=== PATIENT | female | born 1960 | race Caucasian/White ===

== ENCOUNTER 2020-12-10 23:50 | Observation (INO) | payer OTHER ==
[2020-12-11 00:18] LABS: #Lymphocytes 1.5 thou/uL (1.20-3.40); #Monocytes 1.1 thou/uL (0.11-0.59); #Neutrophils 7.3 thou/uL (1.40-6.50); %Basophils 0.1 % (0.0-1.0); %Eosinophils 0.2 % (0.0-10.0); %Neutrophils 73.6 % (42.0-75.0); Hemoglobin 11.6 g/dL (12.0-16.0); Mean Corpuscular HGB CONC 32.7 g/dL (32.0-36.0); Mean Corpuscular Hemoglobin 28.3 pg (27.0-31.0); Mean Corpuscular Volume 86.6 fL (78.0-98.0); Mean Platelet Volume 6.9 fL (7.4-10.4); Platelet Count 493 thou/uL (130-400); RBC Distribution Width 11.6 % (11.5-14.5); White Blood Cell (WBC) Count 9.9 thou/uL (4.8-10.8)
[2020-12-11] MEDS ORDERED: cefTRIAXone\\ROCEPHIN 2 GM VIAL ONE (00:25)
[2020-12-11 00:26] LABS: Bilirubin Negative (Negative); Blood, Urine Negative (Negative); Clarity Clear (Clear); Glucose, Urine (Dipstick) Greater than 1000 mg/dL (Negative); Ketone, Urine 80 mg/dL (Negative); Leukocyte Negative Leu/uL (Negative); Nitrite Negative (Negative); Protein, Urine (Dipstick) 10 mg/dL (Neg-Trace); Specific Gravity, Urine 1.028 (1.002-1.036); Urobilinogen Normal mg/dL (Less than 2)
[2020-12-11] MEDS ORDERED: Lorazepam 2 MG/ML VIAL ONE (00:31)
[2020-12-11] MEDS ORDERED: Haloperidol Lactate 5 MG/ML VIAL ONE (00:39)
[2020-12-11 00:45] LABS: ALT (SGPT) 38 U/L (8-55); AST (SGOT) 42 U/L (5-34); Albumin 3.9 g/dL (3.4-4.8); Alkaline Phosphatase 78 U/L (40-110); Anion Gap 17 mmol/L (10-20); BUN (Urea Nitrogen) 12 mg/dL (9.8-20.1); Bilirubin, Total 0.3 mg/dL (0.2-1.2); Calc. Creatinine Clearance 0 mL/min (70-130); Calcium 8.7 mg/dL (7.8-10.44); Carbon Dioxide 18 mmol/L (23-31); Chloride 94 mmol/L (98-107); Globulin 2.5 g/dL (2.4-3.5); Glucose 424 mg/dL (80-115); Potassium 3.3 mmol/L (3.5-5.1); Protein, Total 6.4 g/dL (5.8-8.1); Sodium 126 mmol/L (136-145)
[2020-12-11] MEDS ORDERED: NS 0.9% w/ 20 MEQ KCL 1,000 ML ONE (01:05)
[2020-12-11 03:30] LABS: Lactic Acid 1.2 mmol/L (0.5-2.2)
[2020-12-11 05:05] VITALS: BMI 25.0
[2020-12-11] MEDS ORDERED: Ondansetron PF 4 MG/2 ML Vial IVP PRN (05:30)
[2020-12-11] MEDS ORDERED: Ondansetron ODT 4 MG TAB SL PRN (05:30)
[2020-12-11] MEDS ORDERED: Acetaminophen 325 MG TAB PO PRN (05:30)
[2020-12-11] MEDS: Sodium Chloride 0.9% 1,000 ML IV SCH ×2 (06:21→13:17)
[2020-12-11] MEDS ORDERED: Dextrose 5% in Water 1,000 ML IV PRN (09:10)
[2020-12-11] MEDS ORDERED: HumaLOG 300 UNITS/3 ML VIAL SC PRN (09:10)
[2020-12-11] MEDS ORDERED: Dextrose 50% Abboject 50 ML SYRINGE SLOW IVP PRN (09:10)
[2020-12-11 13:08] LABS: #Basophils 0.1 thou/uL (0.0-0.2); #Eosinphils 0.1 thou/uL (0.0-0.7); #Lymphocytes 1.3 thou/uL (1.20-3.40); #Monocytes 0.8 thou/uL (0.11-0.59); #Neutrophils 3.1 thou/uL (1.40-6.50); %Basophils 1.3 % (0.0-1.0); %Eosinophils 1.5 % (0.0-10.0); %Lymphocytes 24.2 % (21.0-51.0); %Monocytes 14.6 % (0.0-10.0); %Neutrophils 58.4 % (42.0-75.0); Hemoglobin 10.6 g/dL (12.0-16.0); Mean Corpuscular HGB CONC 33.3 g/dL (32.0-36.0); Mean Corpuscular Volume 87.2 fL (78.0-98.0); Mean Platelet Volume 6.8 fL (7.4-10.4); Platelet Count 405 thou/uL (130-400); RBC Distribution Width 11.6 % (11.5-14.5); Red Blood Cell (RBC) Count 3.65 mill/uL (4.20-5.40); White Blood Cell (WBC) Count 5.4 thou/uL (4.8-10.8)
[2020-12-11 13:36] LABS: Anion Gap 13 mmol/L (10-20); BUN (Urea Nitrogen) 7 mg/dL (9.8-20.1); Calc. Creatinine Clearance 81 mL/min (70-130); Calcium 8.2 mg/dL (7.8-10.44); Carbon Dioxide 20 mmol/L (23-31); Chloride 102 mmol/L (98-107); Glucose 199 mg/dL (80-115); Potassium 3.1 mmol/L (3.5-5.1); Sodium 132 mmol/L (136-145)
[2020-12-11 17:35] LABS: Glucose 115 mg/dL (80-115)
[2020-12-11] MEDS ORDERED: Lisinopril 10 MG TAB PO SCH (21:00)
[2020-12-11] MEDS: Lantus 1000 UNITS/10 ML VIAL SC SCH (21:29)
[2020-12-11] MEDS: Atorvastatin Calcium 10 MG TAB PO SCH (21:29)
[2020-12-12 04:56] LABS: #Basophils 0.1 thou/uL (0.0-0.2); #Eosinphils 0.1 thou/uL (0.0-0.7); #Lymphocytes 2.1 thou/uL (1.20-3.40); #Monocytes 0.9 thou/uL (0.11-0.59); #Neutrophils 3.4 thou/uL (1.40-6.50); %Basophils 1.7 % (0.0-1.0); %Eosinophils 1.7 % (0.0-10.0); %Lymphocytes 31.4 % (21.0-51.0); %Monocytes 13.4 % (0.0-10.0); %Neutrophils 51.9 % (42.0-75.0); Hemoglobin 12.1 g/dL (12.0-16.0); Mean Corpuscular HGB CONC 32.5 g/dL (32.0-36.0); Mean Corpuscular Hemoglobin 28.3 pg (27.0-31.0); Mean Corpuscular Volume 87.2 fL (78.0-98.0); Mean Platelet Volume 6.8 fL (7.4-10.4); Platelet Count 489 thou/uL (130-400); RBC Distribution Width 11.7 % (11.5-14.5); Red Blood Cell (RBC) Count 4.27 mill/uL (4.20-5.40); White Blood Cell (WBC) Count 6.6 thou/uL (4.8-10.8)
[2020-12-12 05:10] LABS: Hemoglobin A1c 8.3 % (4.0-6.0)
[2020-12-12 05:18] LABS: Anion Gap 13 mmol/L (10-20); BUN (Urea Nitrogen) 4 mg/dL (9.8-20.1); Calc. Creatinine Clearance 82 mL/min (70-130); Calcium 8.8 mg/dL (7.8-10.44); Carbon Dioxide 24 mmol/L (23-31); Chloride 102 mmol/L (98-107); Glucose 113 mg/dL (80-115); Potassium 3.2 mmol/L (3.5-5.1); Sodium 136 mmol/L (136-145)
[2020-12-12] MEDS ORDERED: Potassium Chloride 20 MEQ TAB PO SCH (08:30)
[2020-12-12] MEDS: Amlodipine 5 MG TAB PO SCH (09:42)
[2020-12-12] MEDS: Atorvastatin Calcium 10 MG TAB PO SCH (23:30)
[2020-12-12] MEDS: Lantus 1000 UNITS/10 ML VIAL SC SCH (23:30)
[2020-12-12] MEDS: Lisinopril 20 MG TAB PO SCH (23:31)
[2020-12-13] MEDS: Lisinopril 20 MG TAB PO SCH (03:26)
[2020-12-13] MEDS: Amlodipine 5 MG TAB PO SCH (08:09)
[2020-12-13 08:27] VITALS: BP 181/100; TEMP 98.7
== END 2020-12-13 15:14 | disposition home or self-care (01) ==
LOC: ERS 23:50 → 2NO 12-11 02:38
PROVIDERS: ADMIT Student in an Organized Health Care Education/Training Program; ATTEND Internal Medicine
DX: E11.65 Type 2 diabetes mellitus with hyperglycemia (principal); E86.0 Dehydration; G93.41 Metabolic encephalopathy; E78.5 Hyperlipidemia, unspecified; I10 Essential (primary) hypertension; Z79.4 Long term (current) use of insulin; Z79.82 Long term (current) use of aspirin; Z79.899 Other long term (current) drug therapy; Z88.1 Allergy status to other antibiotic agents
CPT/HCPCS: 36415; 36416; 51701; 71045; 80053; 81003; 83036; 83605; 84484; 85025; 87040; 87086; 93005; 96365; 96366; 96375; G0378; J0696; J1630; J2060; J3480

== ENCOUNTER 2021-04-25 14:42 | Inpatient (IN) | payer OTHER ==
[2021-04-25 17:51] VITALS: BMI 23.6
[2021-04-25] MEDS ORDERED: Ondansetron PF 4 MG/2 ML Vial IVP PRN (18:13)
[2021-04-25] MEDS ORDERED: HumaLOG 300 UNITS/3 ML VIAL SC PRN (18:13)
[2021-04-25] MEDS ORDERED: Dextrose 50% Abboject 50 ML SYRINGE SLOW IVP PRN (18:13)
[2021-04-25] MEDS ORDERED: Dextrose 5% in Water 1,000 ML IV PRN (18:13)
[2021-04-25] MEDS ORDERED: Cyclobenzaprine 10 MG TAB PO PRN (18:18)
[2021-04-25] MEDS ORDERED: traMADol HCl 50 MG TAB PO PRN (18:18)
[2021-04-25] MEDS: Morphine 4 MG/ML VIAL SLOW IVP PRN ×2 (18:58→22:26)
[2021-04-25 19:52] LABS: Anion Gap 12 mmol/L (10-20); BUN (Urea Nitrogen) 8 mg/dL (9.8-20.1); Calc. Creatinine Clearance 76 mL/min (70-130); Calcium 9.5 mg/dL (7.8-10.44); Carbon Dioxide 23 mmol/L (23-31); Chloride 93 mmol/L (98-107); Glucose 166 mg/dL (80-115); Magnesium 1.7 mg/dL (1.6-2.6); Potassium 3.4 mmol/L (3.5-5.1); Sodium 125 mmol/L (136-145)
[2021-04-25] MEDS ORDERED: Magnesium Sulfate 2 GM in Sodium Chloride 0.9% 100 ML IVPB SCH (20:18)
[2021-04-25] MEDS ORDERED: Potassium Phosphate 30 MMOL, Magnesium Sulfate 2 GM in Sodium Chloride 0.9% 250 ML IVPB SCH (21:00)
[2021-04-25] MEDS ORDERED: Melatonin 3 MG TAB PO PRN (22:15)
[2021-04-25] MEDS: Acetaminophen 500 MG TAB PO SCH (22:18)
[2021-04-25] MEDS: Ibuprofen 200 MG TAB PO SCH (22:20)
[2021-04-25] MEDS: Lisinopril 10 MG TAB PO SCH (22:23)
[2021-04-25] MEDS: Famotidine 20 MG TAB PO SCH (22:24)
[2021-04-25] MEDS: Senokot S 8.6-50 MG TAB PO SCH (22:34)
[2021-04-25] MEDS: Sodium Chloride 0.9% 1,000 ML IV SCH (22:46)
[2021-04-26] MEDS: Morphine 4 MG/ML VIAL SLOW IVP PRN ×2 (01:04→06:14)
[2021-04-26] MEDS: Acetaminophen 500 MG TAB PO SCH ×4 (01:11→18:11)
[2021-04-26] MEDS: Ibuprofen 200 MG TAB PO SCH ×3 (06:14→21:12)
[2021-04-26] MEDS: Sodium Chloride 0.9% 1,000 ML IV SCH ×3 (06:32→21:14)
[2021-04-26 07:36] LABS: #Basophils 0.1 thou/uL (0.0-0.2); #Eosinphils 0.1 thou/uL (0.0-0.7); #Lymphocytes 1.1 thou/uL (1.20-3.40); #Monocytes 1.2 thou/uL (0.11-0.59); #Neutrophils 12.7 thou/uL (1.40-6.50); %Basophils 0.5 % (0.0-1.0); %Eosinophils 0.4 % (0.0-10.0); %Lymphocytes 7.1 % (21.0-51.0); %Monocytes 7.8 % (0.0-10.0); %Neutrophils 84.2 % (42.0-75.0); Hemoglobin 12.8 g/dL (12.0-16.0); Mean Corpuscular HGB CONC 34.3 g/dL (32.0-36.0); Mean Corpuscular Volume 87.3 fL (78.0-98.0); Mean Platelet Volume 6.4 fL (7.4-10.4); Platelet Count 417 thou/uL (130-400); RBC Distribution Width 11.6 % (11.5-14.5); Red Blood Cell (RBC) Count 4.28 mill/uL (4.20-5.40); White Blood Cell (WBC) Count 15.1 thou/uL (4.8-10.8)
[2021-04-26 07:50] LABS: Anion Gap 12 mmol/L (10-20); BUN (Urea Nitrogen) 5 mg/dL (9.8-20.1); Calc. Creatinine Clearance 88 mL/min (70-130); Carbon Dioxide 25 mmol/L (23-31); Chloride 94 mmol/L (98-107); Potassium 3.6 mmol/L (3.5-5.1); Sodium 127 mmol/L (136-145)
[2021-04-26 07:51] LABS: Glucose 124 mg/dL (80-115); Phosphorus 3.3 mg/dL (2.3-4.7)
[2021-04-26] MEDS ORDERED: CEFAZOLIN 2 GM in Premix Bag 1 BAG IVPB SCH (09:45)
[2021-04-26 13:02] LABS: Bacteria/HPF None Seen HPF (None Seen); Bilirubin Negative (Negative); Blood, Urine Negative (Negative); Clarity Clear (Clear); Glucose, Urine (Dipstick) 300 mg/dL (Negative); Ketone, Urine 40 mg/dL (Negative); Leukocyte Negative Leu/uL (Negative); Nitrite Negative (Negative); Protein, Urine (Dipstick) Negative (Neg-Trace); RBC/HPF 0-3 HPF (0-3); Squamous Epithelial None Seen HPF (0-3); Urobilinogen Normal mg/dL (Less than 2); WBC/HPF 0-3 HPF (0-3); pH, Urine 5.5 (5.0-9.0)
[2021-04-26] MEDS: Famotidine 20 MG TAB PO SCH ×2 (13:11→21:13)
[2021-04-26] MEDS: Polyethylene Glycol 3350 17 GM Packet PO SCH (13:11)
[2021-04-26] MEDS: Senokot S 8.6-50 MG TAB PO SCH ×2 (13:12→21:11)
[2021-04-26] MEDS ORDERED: Fentanyl 250 MCG/5 ML VIAL ONE (13:55)
[2021-04-26] MEDS ORDERED: Lidocaine 1% PF 5 ML VIAL ONE (14:17)
[2021-04-26] MEDS ORDERED: Succinylcholine 200 MG/10 ml SYRINGE FS ONE (14:17)
[2021-04-26] MEDS ORDERED: PROPOFOL 200 MG/20 ML VIAL ONE (14:17)
[2021-04-26] MEDS ORDERED: Glycopyrrolate 0.2 MG/ML 5 ML SYRINGE ONE (14:17)
[2021-04-26] MEDS ORDERED: Dexamethasone 20 MG/5 ML VIAL ONE (14:17)
[2021-04-26] MEDS ORDERED: PHENYLEPHRINE-NS 100 MCG/ML 10 ML SYRINGE ONE (14:17)
[2021-04-26] MEDS ORDERED: Rocuronium Bromide 10 MG/ML (10ML VIAL) ONE (14:17)
[2021-04-26] MEDS ORDERED: Ondansetron PF 4 MG/2 ML Vial ONE (14:17)
[2021-04-26] MEDS ORDERED: SUGAMMADEX SODIUM 200 MG/2 ML VIAL ONE (15:14)
[2021-04-26] MEDS ORDERED: Fentanyl 100 MCG/2 ML VIAL ONE ×2 (15:58→16:56)
[2021-04-26] MEDS ORDERED: Meperidine HCl/PF 25 MG/ML VIAL ONE (16:05)
[2021-04-26] MEDS ORDERED: HYDROmorphone 0.5 MG/0.5 ML SYRINGE ONE (16:44)
[2021-04-26] MEDS: Lisinopril 10 MG TAB PO SCH (21:11)
[2021-04-26] MEDS: CEFAZOLIN 2 GM in Premix Bag 1 BAG IVPB SCH (21:15)
[2021-04-26] MEDS: HumaLOG 300 UNITS/3 ML VIAL SC PRN (21:35)
[2021-04-27] MEDS: Acetaminophen 500 MG TAB PO SCH ×5 (01:58→23:30)
[2021-04-27] MEDS: CEFAZOLIN 2 GM in Premix Bag 1 BAG IVPB SCH ×2 (05:18→16:09)
[2021-04-27] MEDS: Ibuprofen 200 MG TAB PO SCH ×3 (05:19→20:05)
[2021-04-27 07:34] LABS: #Eosinphils 0.1 thou/uL (0.0-0.7); #Lymphocytes 1.1 thou/uL (1.20-3.40); #Monocytes 1.3 thou/uL (0.11-0.59); %Basophils 0.3 % (0.0-1.0); %Eosinophils 0.5 % (0.0-10.0); %Lymphocytes 7.6 % (21.0-51.0); %Monocytes 9.1 % (0.0-10.0); %Neutrophils 82.7 % (42.0-75.0); Hemoglobin 11.1 g/dL (12.0-16.0); Mean Corpuscular HGB CONC 34.1 g/dL (32.0-36.0); Mean Corpuscular Hemoglobin 30.4 pg (27.0-31.0); Mean Platelet Volume 7.1 fL (7.4-10.4); Platelet Count 362 thou/uL (130-400); RBC Distribution Width 11.9 % (11.5-14.5); Red Blood Cell (RBC) Count 3.65 mill/uL (4.20-5.40); White Blood Cell (WBC) Count 14.5 thou/uL (4.8-10.8)
[2021-04-27 07:57] LABS: Anion Gap 12 mmol/L (10-20); BUN (Urea Nitrogen) 5 mg/dL (9.8-20.1); Calc. Creatinine Clearance 81 mL/min (70-130); Calcium 8.5 mg/dL (7.8-10.44); Carbon Dioxide 22 mmol/L (23-31); Chloride 96 mmol/L (98-107); Glucose 178 mg/dL (80-115); Magnesium 1.7 mg/dL (1.6-2.6); Phosphorus 2.4 mg/dL (2.3-4.7); Potassium 3.4 mmol/L (3.5-5.1); Sodium 127 mmol/L (136-145)
[2021-04-27] MEDS ORDERED: Non-Formulary Item 1 EACH (Insulin Glargine,Hum.Rec.Anlog [Basaglar Kwikpen U-100] 100 UN SQ SCH (09:00)
[2021-04-27] MEDS: Senokot S 8.6-50 MG TAB PO SCH ×2 (09:21→20:04)
[2021-04-27] MEDS: glyBURIDE 5 MG TAB PO SCH ×2 (09:21→20:05)
[2021-04-27] MEDS: Aspirin 81 mg Enteric Coated Tablet PO SCH ×2 (09:21→20:04)
[2021-04-27] MEDS: Alogliptin 25 MG TAB PO SCH (09:21)
[2021-04-27] MEDS: Polyethylene Glycol 3350 17 GM Packet PO SCH (09:21)
[2021-04-27] MEDS: Famotidine 20 MG TAB PO SCH ×2 (09:21→20:05)
[2021-04-27] MEDS ORDERED: Potassium Phosphate 30 MMOL in Sodium Chloride 0.9% 250 ML 250 ML IVPB SCH (10:00)
[2021-04-27] MEDS ORDERED: Magnesium 2 GM/50 ML 2 GM in Premix Bag 1 BAG IVPB SCH (10:00)
[2021-04-27] MEDS: Lantus 1000 UNITS/10 ML VIAL SC SCH (10:11)
[2021-04-27] MEDS: Lisinopril 10 MG TAB PO SCH (17:31)
[2021-04-27] MEDS: Atorvastatin Calcium 10 MG TAB PO SCH (20:05)
[2021-04-28] MEDS: Acetaminophen 500 MG TAB PO SCH ×4 (05:50→23:53)
[2021-04-28] MEDS: Ibuprofen 200 MG TAB PO SCH ×3 (05:50→20:40)
[2021-04-28 06:36] LABS: #Basophils 0.1 thou/uL (0.0-0.2); #Eosinphils 0.1 thou/uL (0.0-0.7); #Lymphocytes 1.1 thou/uL (1.20-3.40); #Monocytes 1.4 thou/uL (0.11-0.59); #Neutrophils 11.3 thou/uL (1.40-6.50); %Basophils 0.6 % (0.0-1.0); %Lymphocytes 7.8 % (21.0-51.0); %Monocytes 9.7 % (0.0-10.0); %Neutrophils 80.9 % (42.0-75.0); Hemoglobin 11.5 g/dL (12.0-16.0); Mean Corpuscular HGB CONC 32.3 g/dL (32.0-36.0); Mean Corpuscular Hemoglobin 28.4 pg (27.0-31.0); Mean Corpuscular Volume 87.7 fL (78.0-98.0); Mean Platelet Volume 6.5 fL (7.4-10.4); Platelet Count 365 thou/uL (130-400); RBC Distribution Width 11.9 % (11.5-14.5); Red Blood Cell (RBC) Count 4.06 mill/uL (4.20-5.40); White Blood Cell (WBC) Count 13.9 thou/uL (4.8-10.8)
[2021-04-28 06:57] LABS: Anion Gap 13 mmol/L (10-20); BUN (Urea Nitrogen) 6 mg/dL (9.8-20.1); Calc. Creatinine Clearance 98 mL/min (70-130); Calcium 8.7 mg/dL (7.8-10.44); Carbon Dioxide 28 mmol/L (23-31); Chloride 92 mmol/L (98-107); Glucose 84 mg/dL (80-115); Magnesium 1.9 mg/dL (1.6-2.6); Phosphorus 2.5 mg/dL (2.3-4.7); Potassium 3.1 mmol/L (3.5-5.1); Sodium 130 mmol/L (136-145)
[2021-04-28] MEDS ORDERED: Loratadine 10 MG TAB PO PRN (07:52)
[2021-04-28] MEDS ORDERED: Magnesium 2 GM/50 ML 2 GM in Premix Bag 1 BAG IVPB SCH (08:00)
[2021-04-28] MEDS ORDERED: Potassium Phosphate 30 MMOL in Sodium Chloride 0.9% 250 ML 250 ML IVPB SCH (08:00)
[2021-04-28] MEDS: Alogliptin 25 MG TAB PO SCH (09:40)
[2021-04-28] MEDS: glyBURIDE 5 MG TAB PO SCH ×2 (09:40→20:37)
[2021-04-28] MEDS: Famotidine 20 MG TAB PO SCH ×2 (09:41→20:36)
[2021-04-28] MEDS: Senokot S 8.6-50 MG TAB PO SCH ×2 (09:41→20:37)
[2021-04-28] MEDS: Aspirin 81 mg Enteric Coated Tablet PO SCH ×2 (09:41→20:36)
[2021-04-28] MEDS: Polyethylene Glycol 3350 17 GM Packet PO SCH ×2 (09:41→11:42)
[2021-04-28] MEDS: Lantus 1000 UNITS/10 ML VIAL SC SCH (09:42)
[2021-04-28] MEDS: traMADol HCl 50 MG TAB PO PRN (10:17)
[2021-04-28] MEDS ORDERED: Metoprolol Tartrate 25 MG TAB PO SCH (11:00)
[2021-04-28] MEDS: Atorvastatin Calcium 10 MG TAB PO SCH (20:36)
[2021-04-28] MEDS: Lisinopril 10 MG TAB PO SCH (20:37)
[2021-04-28] MEDS: Metoprolol Tartrate 25 MG TAB PO SCH (20:37)
[2021-04-29] MEDS: Ibuprofen 200 MG TAB PO SCH ×3 (05:06→21:29)
[2021-04-29] MEDS: Acetaminophen 500 MG TAB PO SCH ×3 (05:06→18:00)
[2021-04-29] MEDS: HumaLOG 300 UNITS/3 ML VIAL SC PRN (05:07)
[2021-04-29] MEDS: hydrALAZINE 20 MG/ML VIAL SLOW IVP PRN (05:14)
[2021-04-29 05:52] LABS: #Basophils 0.1 thou/uL (0.0-0.2); #Eosinphils 0.6 thou/uL (0.0-0.7); #Monocytes 1.4 thou/uL (0.11-0.59); #Neutrophils 5.9 thou/uL (1.40-6.50); %Basophils 1.3 % (0.0-1.0); %Eosinophils 5.9 % (0.0-10.0); %Lymphocytes 20.1 % (21.0-51.0); %Monocytes 13.5 % (0.0-10.0); %Neutrophils 59.2 % (42.0-75.0); Hemoglobin 11.3 g/dL (12.0-16.0); Mean Corpuscular HGB CONC 33.7 g/dL (32.0-36.0); Mean Corpuscular Hemoglobin 29.6 pg (27.0-31.0); Mean Corpuscular Volume 88.1 fL (78.0-98.0); Platelet Count 356 thou/uL (130-400); Red Blood Cell (RBC) Count 3.82 mill/uL (4.20-5.40)
[2021-04-29 06:19] LABS: Anion Gap 12 mmol/L (10-20); BUN (Urea Nitrogen) 6 mg/dL (9.8-20.1); Calc. Creatinine Clearance 88 mL/min (70-130); Calcium 8.4 mg/dL (7.8-10.44); Carbon Dioxide 29 mmol/L (23-31); Chloride 93 mmol/L (98-107); Glucose 151 mg/dL (80-115); Magnesium 2.2 mg/dL (1.6-2.6); Phosphorus 3.7 mg/dL (2.3-4.7); Sodium 130 mmol/L (136-145)
[2021-04-29] MEDS: Polyethylene Glycol 3350 17 GM Packet PO SCH (08:40)
[2021-04-29] MEDS: Alogliptin 25 MG TAB PO SCH (08:40)
[2021-04-29] MEDS: Lantus 1000 UNITS/10 ML VIAL SC SCH (08:41)
[2021-04-29] MEDS: glyBURIDE 5 MG TAB PO SCH ×2 (08:41→21:33)
[2021-04-29] MEDS: Metoprolol Tartrate 25 MG TAB PO SCH ×2 (08:42→21:29)
[2021-04-29] MEDS: Senokot S 8.6-50 MG TAB PO SCH ×2 (08:42→21:28)
[2021-04-29] MEDS: Aspirin 81 mg Enteric Coated Tablet PO SCH ×2 (08:42→21:31)
[2021-04-29] MEDS: Famotidine 20 MG TAB PO SCH ×2 (08:42→21:28)
[2021-04-29] MEDS: Lisinopril 10 MG TAB PO SCH (21:29)
[2021-04-29] MEDS: Atorvastatin Calcium 10 MG TAB PO SCH (21:30)
[2021-04-30] MEDS: Ibuprofen 200 MG TAB PO SCH ×3 (06:07→21:34)
[2021-04-30] MEDS: traMADol HCl 50 MG TAB PO PRN (06:08)
[2021-04-30] MEDS: Acetaminophen 500 MG TAB PO SCH ×4 (06:53→17:05)
[2021-04-30] MEDS: HumaLOG 300 UNITS/3 ML VIAL SC PRN (07:03)
[2021-04-30] MEDS: glyBURIDE 5 MG TAB PO SCH ×2 (10:00→21:34)
[2021-04-30] MEDS: Aspirin 81 mg Enteric Coated Tablet PO SCH ×2 (10:00→21:35)
[2021-04-30] MEDS: Alogliptin 25 MG TAB PO SCH (10:00)
[2021-04-30] MEDS: Senokot S 8.6-50 MG TAB PO SCH ×2 (10:00→21:35)
[2021-04-30] MEDS: Polyethylene Glycol 3350 17 GM Packet PO SCH (10:01)
[2021-04-30] MEDS: Famotidine 20 MG TAB PO SCH ×2 (10:01→21:34)
[2021-04-30] MEDS: Metoprolol Tartrate 25 MG TAB PO SCH ×2 (10:01→21:33)
[2021-04-30] MEDS: Lantus 1000 UNITS/10 ML VIAL SC SCH (10:02)
[2021-04-30] MEDS: hydrALAZINE 20 MG/ML VIAL SLOW IVP PRN (17:06)
[2021-04-30] MEDS ORDERED: Lisinopril 10 MG TAB PO SCH (21:00)
[2021-04-30] MEDS: Atorvastatin Calcium 10 MG TAB PO SCH (21:34)
[2021-05-01] MEDS: Acetaminophen 500 MG TAB PO SCH ×4 (02:44→18:17)
[2021-05-01] MEDS: Ibuprofen 200 MG TAB PO SCH ×2 (05:45→14:29)
[2021-05-01] MEDS ORDERED: Bisacodyl 5 MG TAB PO PRN (07:52)
[2021-05-01] MEDS: Metoprolol Tartrate 25 MG TAB PO SCH (09:59)
[2021-05-01] MEDS: Aspirin 81 mg Enteric Coated Tablet PO SCH (09:59)
[2021-05-01] MEDS: glyBURIDE 5 MG TAB PO SCH (10:00)
[2021-05-01] MEDS: Alogliptin 25 MG TAB PO SCH (10:00)
[2021-05-01] MEDS: Famotidine 20 MG TAB PO SCH (10:00)
[2021-05-01] MEDS: Senokot S 8.6-50 MG TAB PO SCH (10:01)
[2021-05-01] MEDS: traMADol HCl 50 MG TAB PO PRN (10:01)
[2021-05-01] MEDS: Polyethylene Glycol 3350 17 GM Packet PO SCH (10:39)
[2021-05-01] MEDS: Lantus 1000 UNITS/10 ML VIAL SC SCH (10:41)
[2021-05-01] MEDS: HumaLOG 300 UNITS/3 ML VIAL SC PRN ×2 (12:10→17:47)
[2021-05-01 19:54] VITALS: BP 182/86; TEMP 98.4
== END 2021-05-01 19:40 | DRG 522 ==
LOC: SURG B 14:42
PROVIDERS: ADMIT Surgery; ATTEND Surgery
PROC: 0SRS0JA Replacement of Left Hip Joint, Femoral Surface with Synthetic Substitute, Uncemented, Open Approach (ICD-10-PCS; principal; 2021-04-26)
DX: S72.012A Unspecified intracapsular fracture of left femur, initial encounter for closed fracture (principal); E87.1 Hypo-osmolality and hyponatremia; Z20.822 Contact with and (suspected) exposure to COVID-19; W18.30XA Fall on same level, unspecified, initial encounter; E87.6 Hypokalemia; I10 Essential (primary) hypertension; E11.9 Type 2 diabetes mellitus without complications; E78.5 Hyperlipidemia, unspecified; M19.90 Unspecified osteoarthritis, unspecified site; R00.0 Tachycardia, unspecified; Z79.4 Long term (current) use of insulin; Z79.899 Other long term (current) drug therapy; Z90.49 Acquired absence of other specified parts of digestive tract; Z90.710 Acquired absence of both cervix and uterus; Z88.1 Allergy status to other antibiotic agents; Z88.8 Allergy status to other drugs, medicaments and biological substances
CPT/HCPCS: 36415; 36416; 71045; 72170; 80048; 81001; 83735; 84100; 85025; 87086; 93005; 93010; J0360; J0690; J1100; J1170; J1815; J2175; J2270; J2405; J2704; J3010; J3475; J7030; J7050